=== PATIENT | male | born 1955 | race American Indian/Alaskan Native ===

== ENCOUNTER 2018-07-17 13:14 | Emergency (ER) | payer SELFPAY ==
--- NOTE | 2018-07-17 13:24 | Emergency Department Report ---
HPI - General Time Seen by Provider: 07/17/18 13:20 - HPI HPI: Room 21 The patient is a 63-year-old male presented with a chief complaint cardiac arrest. Per EMS there is no last known well time. Neighbors looked over and saw the patient was unresponsive on his porch and called EMS. EMS arrived on scene at 12:43 to find the patient unresponsive line was porch on top of a broken beer bottle. The patient was found to be in asystole. ACLS protocols were initiated and the patient was intubated by EMS and given chest compressions. Per EMS the patient was administered 3 rounds of epinephrine. EMS states he believes the patient into fine V. fib so he was defibrillated. Upon arrival to the ED the patient is felt to be in asystole. ACLS protocols were continued but there was no return of spontaneous circulation Location: Cardiovascular system Duration: [See above] Quality: Asystole Severity: Severe Modifying factors: [see above] Context: [see above] Mode of transportation: [not driving] ED Past Medical Hx - Surgical History Past Surgical History?: No - Family History Family history: no significant - Social History Smoking Status: Unknown if ever smoked ED Review of Systems ROS: Stated complaint: CARDIAC ARREST Other details as noted in HPI Comment: Unobtainable due to pts medical conditions Physical Exam - Physical Exam Physical Exam: GENERAL: The patient is well-developed well-nourished male lying on stretcher receiving chest compressions and being bagged via ET tube. [] HEENT: Normocephalic. Atraumatic. NECK: Trachea midline CHEST/LUNGS: No spontaneous respirations. Breath sounds equal bilaterally with bagging HEART/CARDIOVASCULAR: No heart sounds. Asystole on monitor ABDOMEN: Abdomen is soft, nontender. Patient has normal bowel sounds. There is no abdominal distention. SKIN: There is no diaphoresis. NEURO: GCS 3T MUSCULOSKELETAL: There is no evidence of acute injury. ED Medical Decision Making - Differential Diagnosis cardiac arrest Critical care attestation.: If time is entered above; I have spent that time in minutes in the direct care of this critically ill patient, excluding procedure time. ED Disposition Clinical Impression: Cardiac arrest Disposition: DC-20 Is pt being admited?: No Does the pt Need Aspirin: No Condition: Poor Time of Disposition: 13:20 (patient )
[2018-07-17] MEDS ORDERED: ADRENALIN ONE (13:37)
== END 2018-07-17 16:45 ==
LOC: ED 13:14
DX: I46.9 Cardiac arrest, cause unspecified (principal)
CPT/HCPCS: 99285; J0171